=== PATIENT | female | born 1960 | race Caucasian/White ===

== ENCOUNTER 2024-08-09 21:53 | Emergency (ER) | payer MEDICARE ==
[~2024-08-09] VITALS: Ht 162.6 cm; Wt 59.8 kg
[2024-08-09 21:54] VITALS: BP 184/102; TEMP 97.6; O2SAT 98
== END 2024-08-09 22:44 | disposition left against medical advice (07) ==
LOC: M ED 21:53
DX: Z53.21 Procedure and treatment not carried out due to patient leaving prior to being seen by health care provider (principal)

== ENCOUNTER → 2025-03-09 | Outpatient (CLI) | payer MEDICARE, BC ==
[~2025-03-09] MED LIST: AMLO2.5T3; OXYC1TAB23
== END ==
LOC: M WHC 13:07
PROVIDERS: ATTEND Nurse Practitioner
DX: M85.851 Other specified disorders of bone density and structure, right thigh (principal)